=== PATIENT | female | born 1975 | race Caucasian/White ===

== ENCOUNTER → 2017-10-09 07:18 | Outpatient (CLI) | payer OTHER, SELFPAY ==
[2017-10-09 07:57] LABS: Add Manual Diff / Slide Review NO; Basophils Percent Auto 0.3 % (0-2); Eosinophils Percent Auto 2.3 % (2-4); Hematocrit 35.4 % (36-46); Lymphocytes Percent Auto 27.2 % (25-40); Mean Corpuscular HGB Conc 33.9 % (30-36); Mean Corpuscular Hemoglobin 31.1 PG (26-34); Mean Corpuscular Volume 91.8 fL (80-100); Monocytes Percent Auto 9.3 % (3-14); Neutrophils Absolute Auto 3700 /uL (3000-5900); Neutrophils Percent Auto 60.9 % (50-75); Platelet Count 274 X10^3/uL (150-400); Red Blood Cell Count 3.86 X10^6/uL (4.0-5.2); Red Cell Distribution Width 12.7 % (11.6-14.8); White Blood Cell Count 6.1 X10^3/uL (4.5-11.0)
[2017-10-09 08:38] LABS: BUN Creatinine Ratio 24.3 (6-22); Blood Urea Nitrogen 17 mg/dL (7-17); Calcium 9.4 mg/dL (8.4-10.2); Carbon Dioxide 28 mmol/L (22-32); Chloride 102 mmol/L (98-107); Estimated Glomerular Filt Rate > 60.0 mL/min (>60); Glucose 92 mg/dL (70-100); HEMOLYSIS < 15 (0-50); Potassium 4.1 mmol/L (3.4-5.1); Sodium 139 mmol/L (137-145)
[2017-10-09 09:06] LABS: Ferritin 22.8 ng/mL (6.27-137)
== END ==
PROVIDERS: PCP Family Medicine; Visit Provider Family Medicine
DX: I10 Essential (primary) hypertension (principal); D53.9 Nutritional anemia, unspecified
CPT/HCPCS: 36415; 80048; 82728; 85025

== ENCOUNTER → 2017-12-15 07:33 | Outpatient (CLI) | payer OTHER, SELFPAY ==
--- NOTE | 2017-12-15 07:35 | DI.MG.S_ITS ---
BILATERAL DIGITAL SCREENING MAMMOGRAM 3D/2D WITH CAD: 12/15/2017 CLINICAL: Baseline exam. Routine screening. Family history of breast cancer. No prior exams were available for comparison. The tissue of both breasts is extremely dense, which lowers the sensitivity of mammography. Current study was also evaluated with a Computer Aided Detection (CAD) system. No significant masses, calcifications, or other findings are seen in either breast. IMPRESSION: NEGATIVE There is no mammographic evidence of malignancy. A 1 year screening mammogram is recommended. This exam was interpreted at Station ID: [id number]. NOTE: For mammograms, a report in lay terms will be sent to the patient. Approximately 15% of breast malignancies will not be visualized mammographically. In the management of a palpable breast mass, a negative mammogram must not discourage biopsy of a clinically suspicious lesion. Electronically Signed By: Vera griffith/hedy:12/15/2017 09:04:04 letter sent: Normal Exam ACR BI-RADS Category 1: Negative [id number]
== END ==
PROVIDERS: PCP Family Medicine; Visit Provider Family Medicine
DX: Z12.31 Encounter for screening mammogram for malignant neoplasm of breast (principal); Z80.3 Family history of malignant neoplasm of breast
CPT/HCPCS: 77063; 77067

== ENCOUNTER → 2018-02-22 07:18 | Outpatient (CLI) | payer OTHER, SELFPAY ==
--- NOTE | 2018-02-22 | DI.US.S_ITS ---
PROCEDURE: US THYROID INDICATIONS: RIGHT SIDE NECK MASS TECHNIQUE: Real-time scanning was performed of the thyroid gland, with image documentation. COMPARISON: None. FINDINGS: Right: Thyroid lobe measures 4.7 x 2.4 x 3.5 cm. Left: Thyroid lobe measures 5.3 x 1.2 x 1.4 cm, and is homogenous in echotexture. Isthmus: 3 mm thick. Nodule number: 1 Location: Right thyroid Size: 4.7 x 2.4 x 3.1 cm. It is noted that this nodule is hypervascular. Composition: Solid Echogenicity: Isoechoic Shape: wider than tall. Margins: Smooth Echogenic foci: None Total points: 3 ACR TI-RADS category: 3, mildly suspicious. An ultrasound guided thyroid biopsy is recommended, by published criteria. IMPRESSION: There is a nodule seen encompassing the entire right thyroid lobe, without abnormal right thyroid tissue seen. An ultrasound guided fine needle aspiration of this nodule is recommended by published criteria. ACR TI-RADS definitions and recommendations: TI-RADS 1 (benign): 0 points. FNA not needed. TI-RADS 2 (not suspicious): 2 points. FNA not needed. TI-RADS 3 (mildly suspicious): 3 points. * FNA if 2.5 cm or larger, follow up if 1.5 cm or larger (at 1, 3, and 5 years). TI-RADS 4 (moderately suspicious): 4-6 points. * FNA if 1.5 cm or larger, follow up if 1 cm or larger (at 1, 2, 3, and 5 years). TI-RADS 5 (highly suspicious): 7 points or more. * FNA if 1 cm or larger, follow up if 0.5 cm or larger (every year for 5 years). Dictated by: Ramirez Sorto M.D. on 02/22/2018 at 7:34 Approved by: Ramirez Sorto M.D. on 02/22/2018 at 7:37
== END ==
PROVIDERS: PCP Family Medicine; Visit Provider Family Medicine
DX: R22.1 Localized swelling, mass and lump, neck (principal)
CPT/HCPCS: 76536

== ENCOUNTER → 2018-03-08 10:11 | Outpatient (CLI) | payer OTHER, SELFPAY ==
--- NOTE | 2018-03-08 | DI.US.S_ITS ---
PROCEDURE: US FINE NEEDLE ASPIRATION INDICATIONS: THYROID NODULE TECHNIQUE: The indications, alternatives, benefits, risks, and complications of the procedure were explained to the patient. Written informed consent was obtained and placed in the chart. The thyroid region was examined sonographically and a site was chosen for ultrasound guided percutaneous sampling. The skin was prepared and draped in the usual fashion, and anesthetized with 1% lidocaine infiltrated from the skin down to the thyroid gland. Multiple passes were then performed, with contents emptied into an appropriate pathology specimen container. A bandage was applied to the area of access at completion of the study. COMPARISON: None. FINDINGS: Location(s) of lesion(s) sampled: The right thyroid lobe [place]: 25 gauge hypodermic needles. Number of passes: 6 Medications: 1% lidocaine for local anaesthesia. Complications: None. IMPRESSION: Successful ultrasound-guided thyroid nodule fine needle aspiration, with cytology results pending. Please see chart below for management recommendations based on cytology results. [facility] ReportingRecommendationsNon-diagnostic* Repeat US-guided FNA, with on-site cytology evaluation if possible. * Repeated non-diagnostic nodules without high suspicion US features: close observation vs surgical consult. * Consider surgery if nodule has high suspicion US features, grows >20% in 2 dimensions on followup, or patient has clinical risk factors for malignancy. Benign* If nodule has high suspicion US features: repeat US and FNA within 12 months. * If nodule has low to intermediate suspicion US features: repeat US at 12-24 months. If nodule grows (20% increase in at least 2 dimensions, with minimal increase of 2 mm or >50% change in volume), or development of new suspicious US features, then repeat FNA or continue followup. * If nodule has very low suspicion US features: followup US at >24 months. Atypia of undetermined significance, follicular lesion of undetermined significanceRepeat FNA, molecular testing, followup US, or surgical consult.Follicular neoplasm, suspicious for follicular neoplasmSurgical consult; also consider molecular testing. Suspicious for malignancySurgical consult.MalignantSurgical consult. Dictated by: Anthony Platt M.D. on 03/08/2018 at 12:19 Approved by: Anthony Platt M.D. on 03/08/2018 at 12:19
--- NOTE | 2018-03-08 | PATH_ITS ---
Note [facility] Accession Number: [id number] TESTS RESULT FLAG UNITS REF RANGE LAB Clinician Provided Cytology Information No. of containers..01 ThinPrep Vial No. of containers..00 Previously Prepared Cytology Slide R THYROID NODULE DIAGNOSIS: R THYROID NODULE INCONCLUSIVE. ATYPIA OF UNDETERMINED SIGNIFICANCE. COMMENT: Follicular cells, predominantly benign-appearing, with focal cytologic atypia. Note: A repeat aspirate after an appropriate interval of observation might be helpful, if clinicallly indicated. Pathologist ICD10: 02 R89.6, E04.1 01 42 Years old female comes in today for: Lymph node check, reflux F/U 02 Vivian Parra MD, Pathologist NPI- [id number] Tommy Hobbs, [employer] ([facility]) 01 30 CC, PINK, CLEAR Also received 5 alcohol fixed, 5 quick stained slides, and 1 RNA vial. /HK FLAG LEGEND: L-Low Normal,H-High Normal,LL-Alert Low,HH-Alert High <-Panic Low,>-Panic High,A-Abnormal,AA-Critical Abnormal Performed at: 01 =Z [facility] [address], [place] [address] Marco Antonio Tirado MD, 02 [facility] [address] [place] [address] Stephanie Mcmillan MD, Performed at: 01 [facility] [address], [place], [place] [id number] MD Marco Antonio Tirado MD Phone: [phone]
== END ==
PROVIDERS: PCP Family Medicine; Visit Provider Family Medicine
DX: E04.1 Nontoxic single thyroid nodule (principal)
CPT/HCPCS: 10005

== ENCOUNTER → 2018-05-15 12:11 | Outpatient (REF) | payer OTHER, SELFPAY ==
[2018-05-15 12:41] LABS: Influenza A and B by PCR Rapid Negative (Negative)
== END ==
LOC: LAB 12:11
PROVIDERS: PCP Family Medicine; Visit Provider Family Medicine
DX: R05 Cough (principal); R50.9 Fever, unspecified
CPT/HCPCS: 87400

== ENCOUNTER 2018-05-28 12:52 | Emergency (ER) | payer BC, SELFPAY ==
[2018-05-28 13:00] VITALS: BP 155/93; PULSE 77; RESP 18; TEMP 36.6; O2SAT 100; BMI 26.6
[2018-05-28 14:28] LABS: Influenza A and B by PCR Rapid Negative (Negative)
--- NOTE | 2018-05-28 14:44 | ED.SOB ---
HPI - SOB/Dyspnea <EVELYN Holm - Last Filed: 05/28/18 22:14> General Chief Complaint: Shortness of Breath/Dyspnea Stated Complaint: cough, sick for 2 weeks,think I am dying Time Seen by Provider: 05/28/18 13:58 Source: patient Mode of arrival: ambulatory Limitations: no limitations History of Present Illness A 42-year-old female with history of factor 5 Leiden is a nonsmoker here for complaint of having cough on and off over the past 2 weeks. She has been seen for this by her primary care provider and in the walk-in clinic. She was seen in the walk-in clinic yesterday and was treated for cough and was prescribed Augmentin. She states she is not feeling better at this time frame. She has had negative flu swabs. She reports that she has nasal congestion along with the cough. She denies any recent fevers. She denies having a productive cough. She has tolerated p.o. intake. She denies any facial pain or sinus pain. she states that she has been around coworkers that have had cold and sickness like symptoms. she also complains of having some pain into her mouth and tongue after taking the antibiotics and having some whitish growth in his concern for thrush. no other concerns or complaints at this time frame. MD Complaint: cough Related Data Home Medications Medication Instructions Recorded Confirmed folic acid 5 mg PO DAILY #0 06/13/11 05/28/18 multivitamin 1 tab PO DAILY #0 10/06/11 05/28/18 aspirin 81 mg PO DAILY #0 04/20/12 05/28/18 labetalol 100 mg PO QAM #0 04/20/12 05/28/18 labetalol 50 mg PO QPM 05/28/18 05/28/18 Previous Rx's Medication Instructions Recorded amoxicillin 875 mg-potassium 1 tab PO BID 10 Days #20 tab 05/27/18 clavulanate 125 mg tablet benzonatate [Tessalon Perles] 200 mg PO BID-TID PRN #20 cap 05/28/18 doxycycline hyclate 100 mg PO BID #14 tab 05/28/18 fluconazole [Diflucan] 200 mg PO DAILY #7 tab 05/28/18 Allergies Allergy/AdvReac Type Severity Reaction Status Date / Time cefaclor [CEFACLOR] Allergy Severe swelling Verified 05/27/18 16:36 Sulfa (Sulfonamide Allergy Severe swelling, Verified 05/27/18 16:36 Antibiotics) itching [SULFA (SULFONAMIDE ANTIBIOTICS)] Iodine and Iodide Containing Allergy Mild rash Verified 05/27/18 16:36 Produc [IODINE AND IODIDE CONTAINING PRODUC] Review of Systems <EVELYN Holm - Last Filed: 05/28/18 22:14> Constitutional Denies chills, Denies fever(s), Denies lethargy and Denies weakness Eyes Denies change in vision, Denies eye discharge, Denies irritation and Denies loss of vision ENT Ears, Nose, Mouth, and Throat: Reports nasal congestion and Reports other Cardiovascular Denies chest pain, Denies irregular heart rhythm, Denies lightheadedness, Denies palpitations and Denies orthopnea Respiratory Reports cough Gastrointestinal Gastrointestinal: Denies abdominal pain, Denies change in bowel habits, Denies diarrhea, Denies nausea and Denies vomiting Genitourinary Denies hematuria, Denies flank pain, Denies urinary incontinence and Denies urinary urgency Integumentary/Breasts Denies pruritus, Denies erythema, Denies rash and Denies wounds Neurologic Denies loss of vision and Denies weakness Endocrine Denies palpitations Hematologic/Lymphatic Denies easy bruising PFSH <EVELYN Holm - Last Filed: 05/28/18 22:14> Medical History Factor V Leiden (Chronic 2002) Hayfever (Chronic) Infertility (Chronic 2002) Irregular periods/menstrual cycles (Chronic 1995) 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) Chicken pox (Resolved) Surgical History Anesthesia (Resolved) History of mandibular surgery (Resolved 11/2010) Status post dilation and curettage (Resolved 09/2002) Status post dilation and curettage (Resolved 04/2003) Status post dilation and curettage (Resolved 05/2009) Status post hernia repair (Resolved 12/1979) Status post tubal ligation (Resolved 07/2014) Family History Father Age: 67 Hypertension Grandfather Cancer Heart disease Hypertension High cholesterol Stroke Lung cancer Grandmother Cancer Heart disease Breast cancer Mother Age: 65 Hypertension High cholesterol Grandmother Cancer Diabetes mellitus Breast cancer Heart problem Brother No problems noted. Grandfather Muscle disease Social History marital status: Smoking Status: Never smoker alcohol intake: current (rare) Social History marital status: Smoking Status: Never smoker alcohol intake: current (rare) Exam <EVELYN Holm - Last Filed: 05/28/18 22:14> Initial Vital Signs Initial Vital Signs: Vital Signs Temperature 97.9 F 05/28/18 13:00 Pulse Rate 77 05/28/18 13:00 Respiratory Rate 18 05/28/18 13:00 Blood Pressure 155/93 H 05/28/18 13:00 Pulse Oximetry 100 05/28/18 13:00 Const General: cooperative and well developed Nutritional Appearance: well nourished Orientation: alert, awake, oriented x3 and not confused HENMT Mouth: oral mucosae normal and moist mucous membranes Throat: posterior oropharynx normal Eyes Eyelids: eyelids normal Conjunctivae: conjunctivae normal Sclera: sclerae normal Pupils: PERRL EOM: EOM intact bilaterally Resp Effort & Inspection: normal respiratory effort, able to speak in complete sentences, no respiratory distress and no use of accessory muscles Auscultation: clear to auscultation bilaterally, no rales, no rhonchi and no wheezes Cardio Rate: regular rate Rhythm: regular rhythm Heart Sounds: no click, no gallops, no murmurs and no rubs Pulses: normal peripheral pulses Skin General: no rashes or lesions noted, No jaundice and No petechiae Neuro General: alert, oriented x3, gait normal and no focal motor deficits Speech: speech normal <Anna Gonzalez DO - Last Filed: 05/29/18 18:29> Initial Vital Signs Initial Vital Signs: Vital Signs Temperature 97.9 F 05/28/18 13:00 Pulse Rate 77 05/28/18 13:00 Respiratory Rate 18 05/28/18 13:00 Blood Pressure 155/93 H 05/28/18 13:00 Pulse Oximetry 100 05/28/18 13:00 Course <EVELYN Holm - Last Filed: 05/28/18 22:14> Orders Ordered: ED Orders 05/28/18 14:05 FLU A and B [Influenza A and B by PCR Rapid] Stat 05/28/18 14:52 XR chest 2V Stat Vital Signs - 8 hr 05/28/18 16:13 Pulse Rate 78 Respiratory Rate 18 Blood Pressure [Left Arm] 128/78 Pulse Oximetry 98 <Anna Gonzalez DO - Last Filed: 05/29/18 18:29> Orders Ordered: ED Orders 05/28/18 14:05 FLU A and B [Influenza A and B by PCR Rapid] Stat 05/28/18 14:52 XR chest 2V Stat Vital Signs - 8 hr 05/28/18 16:13 Pulse Rate 78 Respiratory Rate 18 Blood Pressure [Left Arm] 128/78 Pulse Oximetry 98 MDM - SOB/Dyspnea <EVELYN Holm - Last Filed: 05/28/18 22:14> Lab Data Lab Results 05/28/18 Range/Units 14:05 Influenza A & B (PCR) Negative (Negative) Imaging Data Chest x-ray: Radiologist's impression: [address] [address] XRay Report Signed Patient: Vanna Santiago EMR#: [id number] : 1975Acct:[id number] Age/Sex: 42 / FDate of Service: 05/28/18 Loc: ED Accession Number: [id number] Procedure: XR chest 2V Ordering Provider: Kenan Lubin PROCEDURE: XR CHEST 2V INDICATIONS: Cough on and off for last 2 weeks TECHNIQUE: 2 views of the chest were acquired. COMPARISON: None. FINDINGS: Surgical changes and devices: None. Lungs and pleura: Lungs are clear. No pleural effusions or pneumothorax. Mediastinum: Mediastinal contours are normal. Heart size is normal. Bones and chest wall: No suspicious bony abnormalities. Soft tissues appear unremarkable. IMPRESSION: No acute cardiopulmonary disease process. Dictated by: Charlotte Becerril MD, PhD on 05/28/2018 at 15:05 Approved by: Charlotte Becerril MD, PhD on 05/28/2018 at 15:05 [facility] Narrative Medical decision making narrative: Chest x-ray was obtained and was negative for any acute findings. Flu swab was obtained was also negative. signs and symptoms presents as a viral upper respiratory infection. Differential between bronchitis and atypical pneumonia. Will cover for atypical pneumonia with doxycycline. She is instructed to stop taking Augmentin as prescribed. He is prescribed Tessalon Perles to help with the cough. Plenty of fluids and rest. Saline irrigation nasal passages not showers to help with congestion. She is prescribed Diflucan to cover for thrush and also prevent against vaginal candidiasis secondary to antibiotic use. Follow up with primary care provider. Return emergency room for any worsening symptoms. <Anna Gonzalez, - Last Filed: 05/29/18 18:29> Lab Data Lab Results 05/28/18 Range/Units 14:05 Influenza A & B (PCR) Negative (Negative) Discharge Plan Departure Patient Disposition: Home Clinical Impression: Bronchitis, Candidiasis of mouth Discharge Date/Time: 05/28/18 16:16 Interventions: ED Discharge Assessment Last Done: 05/28/18 16:16 Instructions: DI for Acute Bronchitis Activity Restrictions/Additional Instructions: Chest x-ray was obtained today and was negative for any acute findings. Flu swab was also obtained and was negative. signs symptoms presents as a viral bronchitis. Will cover empirically for walking pneumonia with doxycycline which is an antibiotic take as directed. Stop taking the Augmentin antibiotic. You also prescribed fluconazole to treat for thrush and also prevent against vaginal candidiasis use as directed. Plenty of fluids and rest. Use [id number] Tylenol or Motrin as needed for any discomfort. Saline irrigation to nasal passages and hot showers to help with congestion. Tessalon Perles as prescribed to help with cough also use as directed. Follow up with primary care provider. Return emergency room for any worsening symptoms. Prescriptions: New fluconazole [Diflucan] 200 mg tablet 200 mg PO DAILY Qty: 7 RF: 0 benzonatate [Tessalon Perles] 100 mg capsule 200 mg PO BID-TID PRN (Reason: cough) Qty: 20 RF: 0 doxycycline hyclate 100 mg tablet 100 mg PO BID Qty: 14 RF: 0 No Action amoxicillin-pot clavulanate [Augmentin] 875-125 mg tablet 1 tab PO BID 10 Days Qty: 20 RF: 0 folic acid 1 mg Tablet 5 mg PO DAILY Qty: 0 RF: 0 multivitamin Tablet 1 tab PO DAILY Qty: 0 RF: 0 aspirin 81 mg Tablet,Delayed Release (Dr/Ec) 81 mg PO DAILY Qty: 0 RF: 0 labetalol 100 mg Tablet 100 mg PO QAM Qty: 0 RF: 0 labetalol 100 mg Tablet 50 mg PO QPM RF: 0 Referrals: Zachery Vyas MD [Primary Care Provider] - <Anna Gonzalez DO - Last Filed: 05/29/18 18:29> Cosign ED Attending Cosignature Attestation: I was immediately available in the department for consultation. This documentation has been reviewed and I agree with assessment and plan. Supervised by Anna Gonzalez DO
--- NOTE | 2018-05-28 14:52 | DI.RAD.S_ITS ---
PROCEDURE: XR CHEST 2V INDICATIONS: Cough on and off for last 2 weeks TECHNIQUE: 2 views of the chest were acquired. COMPARISON: None. FINDINGS: Surgical changes and devices: None. Lungs and pleura: Lungs are clear. No pleural effusions or pneumothorax. Mediastinum: Mediastinal contours are normal. Heart size is normal. Bones and chest wall: No suspicious bony abnormalities. Soft tissues appear unremarkable. IMPRESSION: No acute cardiopulmonary disease process. Dictated by: Charlotte Becerril MD, PhD on 05/28/2018 at 15:05 Approved by: Charlotte Becerril MD, PhD on 05/28/2018 at 15:05
[2018-05-28 16:13] VITALS: BP 128/78; PULSE 78; RESP 18; O2SAT 98
== END 2018-05-28 16:16 | disposition home or self-care (01) ==
PROVIDERS: Emergency Medicine; Emergency Provider Nurse Practitioner Family; PCP Family Medicine
DX: J40 Bronchitis, not specified as acute or chronic (principal); B37.0 Candidal stomatitis
CPT/HCPCS: 71046; 87400; 99282; 99283

== ENCOUNTER 2018-11-05 06:37 | Emergency (ER) | payer BC, SELFPAY ==
[2018-11-05 06:42] VITALS: BP 147/81; PULSE 91; RESP 14; TEMP 37; O2SAT 98; BMI 25.9
[2018-11-05 07:11] LABS: Influenza A and B by PCR Rapid Negative (Negative)
[2018-11-05] MEDS: ONDANSETRON 4 MG ODT SL (07:36)
--- NOTE | 2018-11-05 07:39 | ED.NAVMDI ---
HPI - Nausea/Vomiting/Diarrhea General Chief complaint: Nausea/Vomiting/Diarrhea Stated complaint: thinks she has a virus/throwing up/headache yester Time Seen by Provider: 11/05/18 07:10 Source: patient Mode of arrival: ambulatory Limitations: no limitations History of Present Illness HPI Narrative: Patient is a 42-year-old female who presents with overall not feeling well. She says she has not had much to eat or drink in a few days feeling a little nauseous she threw up 1 time. She has no real stomach pain she overall just does not feel well. She has been warm but she has not had chills or fever. She has a stuffy nose but no cough she denies any shortness of breath. She sometimes has a headache but denies any significant neck pain. She overall just does not feel well. MD complaint: nausea Description of Vomiting: bilious Description of Diarrhea: none Related Data Home Medications Medication Instructions Recorded Confirmed folic acid 5 mg PO DAILY #0 06/13/11 05/28/18 multivitamin 1 tab PO DAILY #0 10/06/11 05/28/18 aspirin 81 mg PO DAILY #0 04/20/12 05/28/18 labetalol 100 mg PO QAM #0 04/20/12 05/28/18 labetalol 50 mg PO QPM 05/28/18 05/28/18 Previous Rx's Medication Instructions Recorded benzonatate [Tessalon Perles] 200 mg PO BID-TID PRN #20 cap 05/28/18 doxycycline hyclate 100 mg PO BID #14 tab 05/28/18 fluconazole [Diflucan] 200 mg PO DAILY #7 tab 05/28/18 ondansetron 4 mg PO Q8H PRN #10 tab 11/05/18 Allergies Allergy/AdvReac Type Severity Reaction Status Date / Time cefaclor [CEFACLOR] Allergy Severe swelling Verified 05/27/18 16:36 Sulfa (Sulfonamide Allergy Severe swelling, Verified 05/27/18 16:36 Antibiotics) itching [SULFA (SULFONAMIDE ANTIBIOTICS)] Iodine and Iodide Containing Allergy Mild rash Verified 05/27/18 16:36 Produc [IODINE AND IODIDE CONTAINING PRODUC] Review of Systems Review of Systems ROS Unobtainable: All systems reviewed & are unremarkable except as noted in HPI and below Constitutional Constitutional: Denies body ache(s), Denies fever(s), Reports poor appetite and Reports weakness Eyes Eyes: Denies change in vision, Denies eye discharge, Denies irritation and Denies loss of vision ENT Ears, Nose, Mouth, and Throat: Denies change in voice, Denies neck pain and Denies sore throat Cardiovascular Cardiovascular: Denies chest pain, Denies lightheadedness and Denies dyspnea Respiratory Respiratory: Denies cough, Denies dyspnea and Denies wheezing Gastrointestinal Gastrointestinal: Denies abdominal pain, Denies change in bowel habits, Denies diarrhea, Reports nausea and Denies vomiting Musculoskeletal Musculoskeletal: Denies neck pain Integumentary/Breasts Skin/Breast: Denies pruritus, Denies erythema, Denies rash and Denies wounds Neurologic Neurologic: Denies loss of vision and Reports weakness Allergic/Immunologic Allergic/Immunologic: Denies wheezing [facility] Medical History Chicken pox (Resolved) Factor V Leiden (Chronic 2002) Hayfever (Chronic) Infertility (Chronic 2002) Irregular periods/menstrual cycles (Chronic 1995) 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) Surgical History Anesthesia (Resolved) History of mandibular surgery (Resolved 11/2010) Status post dilation and curettage (Resolved 09/2002) Status post dilation and curettage (Resolved 04/2003) Status post dilation and curettage (Resolved 05/2009) Status post hernia repair (Resolved 12/1979) Status post tubal ligation (Resolved 07/2014) Family History Father Age: 68 Hypertension Grandfather Cancer Heart disease Hypertension High cholesterol Stroke Lung cancer Grandmother Cancer Heart disease Breast cancer Mother Age: 66 Hypertension High cholesterol Grandmother Cancer Diabetes mellitus Breast cancer Heart problem Brother No problems noted. Grandfather Muscle disease Social History marital status: Smoking Status: Never smoker alcohol intake: current (rare) Family History Father Age: 68 Hypertension Grandfather Cancer Heart disease Hypertension High cholesterol Stroke Lung cancer Grandmother Cancer Heart disease Breast cancer Mother Age: 66 Hypertension High cholesterol Grandmother Cancer Diabetes mellitus Breast cancer Heart problem Brother No problems noted. Grandfather Muscle disease Social History marital status: Smoking Status: Never smoker alcohol intake: current (rare) Exam Initial Vital Signs Initial Vital Signs: Vital Signs Temperature 98.6 F 11/05/18 06:42 Pulse Rate 91 H 11/05/18 06:42 Respiratory Rate 14 11/05/18 06:42 Blood Pressure 147/81 H 11/05/18 06:42 Pulse Oximetry 98 11/05/18 06:42 GENERAL: Well-appearing, well-nourished and in no acute distress. HEENT: Head atraumatic,EOMI, pupils reactive, no meningeal signs CARDIOVASCULAR: Regular rate and rhythm without murmurs, rubs or gallops. RESPIRATORY: Breath sounds equal bilaterally, no wheezes rales or rhonchi. ABDOMEN: Soft, mild epigastric pain no right upper quadrant pain negative Contreras sign EXTREMITIES: Normal range of motion, no clubbing or edema. Neurovascularly intact NEUROLOGICAL: Alert and oriented x4.Normal gait and speech. SKIN: Warm, dry, no laceration, no petechiae, no rashes or lesions. Course Orders Ordered: ED Orders 11/05/18 06:45 Influenza A and B by PCR Rapid Stat Discontinued Medications Ondansetron HCl (Zofran Odt) 4 mg SL NOW ONE Stop: 11/05/18 07:24 Last Admin: 11/05/18 07:36 Dose: 4 mg Documented by: RODNEY Vital Signs Vital signs: Vital Signs - 8 hr 11/05/18 06:42 Temperature 98.6 F Pulse Rate 91 H Respiratory Rate 14 Blood Pressure 147/81 H Pulse Oximetry 98 MDM - Nausea/Vomiting/Diarrhea Lab Data Attestation: I reviewed the patient's lab results. Labs: Lab Results 11/05/18 Range/Units 06:45 Influenza A & B (PCR) Negative (Negative) MDM Narrative Medical decision making narrative: Patient overall does not appear septic. She has minimal epigastric pain without right upper quadrant pain. She apparently had a migraine headache yesterday which has now resolved. She does not appear to have meningitis she has no meningeal signs. Overall appears nontoxic. Tolerating oral fluids. At this time I see no indication for any further workup. I discussed all findings with the patient, Education has been performed regarding treatment plan, diagnosis, warning signs and symptoms and all concerns have been addressed. Verbally agree with and understood all of the above. Discharge Plan Departure Patient Disposition: Home Clinical Impression: Gastroenteritis Discharge Date/Time: 11/05/18 08:30 Instructions: DI for Viral Gastroenteritis -- Adult Activity Restrictions/Additional Instructions: 1) You have been diagnosed with gastroenteritis 2) What to do: Drink frequent but small amounts of fluids. I recommend Gatorade or a Gatorade-like product, as it has small amounts of sugar and salts that improve fluid retention. 3) Take medications as directed Zofran 4 mg every 8 hours if needed for nausea or vomiting 4) Follow up with your primary care provider in 2-3 days 5) Return to ER if you should have any new or worsening symptoms such as, unable to hold down fluids despite use of anti-nausea medications and the small volume oral rehydration strategy. Prescriptions: New ondansetron 4 mg tablet,disintegrating 4 mg PO Q8H PRN (Reason: nausea and vomiting) Qty: 10 RF: 0 No Action folic acid 1 mg Tablet 5 mg PO DAILY Qty: 0 RF: 0 multivitamin Tablet 1 tab PO DAILY Qty: 0 RF: 0 aspirin 81 mg Tablet,Delayed Release (Dr/Ec) 81 mg PO DAILY Qty: 0 RF: 0 labetalol 100 mg Tablet 100 mg PO QAM Qty: 0 RF: 0 labetalol 100 mg Tablet 50 mg PO QPM RF: 0 fluconazole [Diflucan] 200 mg tablet 200 mg PO DAILY Qty: 7 RF: 0 benzonatate [Tessalon Perles] 100 mg capsule 200 mg PO BID-TID PRN (Reason: cough) Qty: 20 RF: 0 doxycycline hyclate 100 mg tablet 100 mg PO BID Qty: 14 RF: 0 Referrals: Zachery Vyas MD [Primary Care Provider] -
--- NOTE | 2018-11-05 08:22 | PC.NURSE ---
no emesis noted. states stomach still queasy, doctor to see. plan dc
== END 2018-11-05 08:30 | disposition home or self-care (01) ==
PROVIDERS: Emergency Provider Emergency Medicine; PCP Family Medicine
DX: K52.9 Noninfective gastroenteritis and colitis, unspecified (principal)
CPT/HCPCS: 87400; 87502; 99282; 99283

== ENCOUNTER → 2018-11-13 14:51 | Outpatient (CLI) | payer BC, SELFPAY ==
[2018-11-15 15:17] LABS: Homocysteine 9.5 umol/L (< 10.4)
== END ==
PROVIDERS: PCP Family Medicine
DX: D68.9 Coagulation defect, unspecified (principal)
CPT/HCPCS: 36415; 83090

== ENCOUNTER → 2018-12-10 12:59 | Outpatient (CLI) | payer BC, SELFPAY ==
--- NOTE | 2018-12-10 | DI.US.S_ITS ---
PROCEDURE: US THYROID INDICATIONS: thyroid nodule TECHNIQUE: Real-time scanning was performed of the thyroid gland, with image documentation. COMPARISON: [facility], US, US FINE NEEDLE ASPIRATION, 03/08/2018, 10:31. [facility], US, US THYROID, 02/22/2018, 7:27. FINDINGS: Right: Thyroid lobe measures 5.2 x 2.5 x 3.5 cm, and is homogeneous in echotexture. Left: Thyroid lobe measures 5.4 x 1.2 x 1 point cm, and is homogenous in echotexture. Isthmus: 2.5 mm thick. Nodule number: 1 Location: Right lobe Size: Increased at 5.2 x 2.5 x 3.5 cm. Composition: Predominantly solid Echogenicity: Hyperechoic Shape: Wider than tall Margins: Smooth Echogenic foci: None Total points: 3 ACR TI-RADS category: Mildly suspicious IMPRESSION: Increase in size of right thyroid nodule. Recommend repeat fine needle aspiration. ACR TI-RADS definitions and recommendations: TI-RADS 1 (benign): 0 points. FNA not needed. TI-RADS 2 (not suspicious): 2 points. FNA not needed. TI-RADS 3 (mildly suspicious): 3 points. * FNA if 2.5 cm or larger, follow up if 1.5 cm or larger (at 1, 3, and 5 years). TI-RADS 4 (moderately suspicious): 4-6 points. * FNA if 1.5 cm or larger, follow up if 1 cm or larger (at 1, 2, 3, and 5 years). TI-RADS 5 (highly suspicious): 7 points or more. * FNA if 1 cm or larger, follow up if 0.5 cm or larger (every year for 5 years). Dictated by: Honorio WOODS Interpreted: Kaylyn Araujo MD on 12/11/2018 at 15:35 Approved by: Kaylyn Araujo M.D. on 12/11/2018 at 18:20
== END ==
PROVIDERS: PCP Family Medicine; Visit Provider Internal Medicine Endocrinology, Diabetes & Metabolism
DX: E04.1 Nontoxic single thyroid nodule (principal)
CPT/HCPCS: 76536

== ENCOUNTER → 2018-12-17 11:27 | Outpatient (CLI) | payer BC, SELFPAY ==
--- NOTE | 2018-12-17 | DI.MG.S_ITS ---
BILATERAL DIGITAL SCREENING MAMMOGRAM 3D/2D WITH CAD: 12/17/2018 CLINICAL: Routine screening. Family history of breast cancer. Comparison is made to [facility]. The tissue of both breasts is extremely dense, which lowers the sensitivity of mammography. Current study was also evaluated with a Computer Aided Detection (CAD) system. There are benign diffuse calcifications in both breasts. No significant masses, calcifications, or other findings are seen in either breast. There has been no significant interval change. IMPRESSION: There is no mammographic evidence of malignancy. A 1 year screening mammogram is recommended. This exam was interpreted at Station ID: [id number]. NOTE: For mammograms, a report in lay terms will be sent to the patient. Approximately 15% of breast malignancies will not be visualized mammographically. In the management of a palpable breast mass, a negative mammogram must not discourage biopsy of a clinically suspicious lesion. Electronically Signed By: Geovani mooney/hedy:12/18/2018 09:45:18 copy to: Morgan Carcamo letter sent: Normal Exam ACR BI-RADS Category 2: Benign Finding(s) 3342F
== END ==
PROVIDERS: PCP Family Medicine; Visit Provider Family Medicine
DX: Z12.31 Encounter for screening mammogram for malignant neoplasm of breast (principal); Z80.3 Family history of malignant neoplasm of breast
CPT/HCPCS: 77063; 77067

== ENCOUNTER → 2019-03-18 12:11 | Outpatient (CLI) | payer BC, SELFPAY ==
[2019-03-18 14:15] LABS: Free T4, Direct Thyroxine 0.85 ng/dL (0.78-2.19)
[2019-03-18 14:29] LABS: Thyroid Stimulating Hormone 2.76 uIU/mL (0.47-4.68)
[2019-03-20 15:24] LABS: Triiodothyronine T3 Total 87 ng/dL (76-181)
== END ==
PROVIDERS: PCP Family Medicine; Visit Provider Otolaryngology Otolaryngology/Facial Plastic Surgery
DX: E04.1 Nontoxic single thyroid nodule (principal)
CPT/HCPCS: 36415; 84439; 84443; 84480

== ENCOUNTER → 2019-12-20 07:54 | Outpatient (CLI) | payer BC, SELFPAY ==
--- NOTE | 2019-12-20 | DI.MG.S_ITS ---
BILATERAL DIGITAL SCREENING MAMMOGRAM 3D/2D WITH CAD: 12/20/2019 CLINICAL: Routine screening. Family history of breast cancer. Comparison is made to exams dated: 12/17/2018 mammogram and 12/15/2017 mammogram - [facility]. The tissue of both breasts is extremely dense, which lowers the sensitivity of mammography. Current study was also evaluated with a Computer Aided Detection (CAD) system. There are benign diffuse calcifications in both breasts. No significant masses, calcifications, or other findings are seen in either breast. There has been no significant interval change. IMPRESSION: BENIGN There is no mammographic evidence of malignancy. A 1 year screening mammogram is recommended. This exam was interpreted at Station ID: [id number]. NOTE: For mammograms, a report in lay terms will be sent to the patient. Approximately 15% of breast malignancies will not be visualized mammographically. In the management of a palpable breast mass, a negative mammogram must not discourage biopsy of a clinically suspicious lesion. Electronically Signed By: Geovani mooney/hedy:12/20/2019 09:36:54 copy to: Morgan Carcamo letter sent: Normal Exam ACR BI-RADS Category 2: Benign Finding(s) 3342F
== END ==
PROVIDERS: Referring Provider Obstetrics & Gynecology; Visit Provider Obstetrics & Gynecology
DX: Z12.31 Encounter for screening mammogram for malignant neoplasm of breast (principal); Z80.3 Family history of malignant neoplasm of breast
CPT/HCPCS: 77063; 77067

== ENCOUNTER → 2020-06-15 09:56 | Outpatient (CLI) | payer OTHER, SELFPAY ==
[2020-06-15 11:15] LABS: COVID19 -Nasal RAPID Negative (Negative)
== END ==
PROVIDERS: Visit Provider Obstetrics & Gynecology
DX: Z01.812 Encounter for preprocedural laboratory examination (principal); Z20.822 Contact with and (suspected) exposure to COVID-19
CPT/HCPCS: 87635

== ENCOUNTER 2020-06-16 08:27 | Day surgery (SDC) | payer OTHER, SELFPAY ==
[2020-06-10 13:20] VITALS: BMI 26.9
[2020-06-16] VITALS (18 sets, daily range): BP systolic 96–150; BP diastolic 58–85; PULSE 61–79; RESP 8–18; TEMP 36.3–37.2; O2SAT 96–100; BMI 26.9
--- NOTE | 2020-06-16 | PATH_ITS ---
[facility] Accession Number: [id number] . 01 Material submitted: . uterus - UTERUS AND REMANTS OF BILATERAL FALLOPIAN TUBES . 02 Diagnosis: Uterus And Remnants Of Bilateral Fallopian Tubes, Supracervical Hysterectomy And Bilateral Salpingectomy, Not Otherwise Specified (Morcellated Specimen, Weight 39 Grams): Late secretory endometrium; negative for glandular hyperplasia, cytologic atypia, or malignancy. Myometrium with multiple intramural leiomyomas (5-10 mm in greatest dimension). Uterine serosa with benign mesothelial lined cysts and with non-specific adhesions. Segments of fallopian tube x2 with benign paratubal cysts; negative for atypia or malignancy. [facility] 06/23/2020 1528 Local . 02 Electronically signed: . Vivian Parra MD, Pathologist NPI- [id number] . 01 Gross description: . Received in formalin, labeled with the patient's name and uterus and remnants of bilateral fallopian tubes, is a 39 g, 6.0 x 6.0 x 2.5 cm aggregate of multiple morcellated fragments of supracervically amputated uterus, with purple-quiroga serosa with scattered fine adhesions were identified; pink-quiroga endometrium up to 0.3 cm thick; and pink-quiroga, trabeculated myometrium containing multiple (more than 10) pale quiroga, whorled, rubbery myometrial nodules 0.5-1.0 cm in greatest dimension, without hemorrhage or softening. A full-thickness slice measures 2.0 cm in one fragment. No cervix present. Also received in the container are two fimbriated fallopian tubes, 4.0-6.5 cm length, 0.5-0.6 cm diameter, with purple-quiroga serosa with paratubal cysts, and a lumen up to 0.3 cm. Racquet Maker sections are submitted. . SUMMARY OF SECTIONS: A1. Endomyometrium, full-thickness, one piece. A2. Endometrium and myometrium (not full-thickness), two pieces. A3. Additional myometrial nodules and areas of serosal adhesions, insurance follow up representative, four pieces. A4. [place] fallopian tube fimbria and cross-sections, four pieces. A5. Longer fallopian tube fimbria and cross-sections, four pieces. ([id number]) /[facility] 06/20/2020 [facility]9 Local . 02 Pathologist provided ICD-10: N93.9, D25.9 . 02 CPT . 028223 Performed at: 01 [facility] [address] [facility], [place], [place] [id number] MD Marco Antonio Tirado MD Phone: [phone] Performed at: 02 [facility] [address] [place], [place] [id number] MD Stephanie Mcmillan MD Phone: [phone]
[2020-06-16 09:04] LABS: Add Manual Diff / Slide Review NO; Basophils Absolute Auto 0 /uL (0-100); Basophils Percent Auto 0.3 % (0-2); Eosinophils Absolute Auto 200 /uL (0-450); Eosinophils Percent Auto 2.6 % (2-4); Hematocrit 35.7 % (36-46); Hemoglobin 12.2 g/dL (12.0-16.0); Lymphocytes Absolute Auto 1600 /uL (1100-4500); Mean Corpuscular HGB Conc 34.1 % (30-36); Mean Corpuscular Hemoglobin 31.2 PG (26-34); Mean Corpuscular Volume 91.3 fL (80-100); Monocytes Absolute Auto 700 /uL (0-900); Monocytes Percent Auto 8.8 % (3-14); Neutrophils Absolute Auto 5500 /uL (1500-7000); Neutrophils Percent Auto 68.3 % (50-75); Platelet Count 239 X10^3/uL (150-400); Red Blood Cell Count 3.91 X10^6/uL (4.0-5.2); Red Cell Distribution Width 12.8 % (11.6-14.8)
[2020-06-16 09:17] LABS: BUN Creatinine Ratio 19.4 (6-22); Blood Urea Nitrogen 13 mg/dL (7-17); Calcium 9.5 mg/dL (8.4-10.2); Carbon Dioxide 24 mmol/L (22-32); Chloride 104 mmol/L (98-107); Estimated Glomerular Filt Rate > 60.0 mL/min (>60); Glucose 95 mg/dL (70-100); HEMOLYSIS < 15 (0-50); Sodium 138 mmol/L (137-145)
[2020-06-16] MEDS: ACETAMINOPHEN 325 MG TABLET 975 MG PO (09:19)
--- NOTE | 2020-06-16 09:19 | PM.PREOP ---
Pre-operative Note COVID-19 COVID-19 status: Negative Result date/Date tested (Pos, Neg/Pending): 06/16/20 Interval Note History & Physical reviewed/Exam performed by Physician: Yes Changes to H&P: No
[2020-06-16] MEDS: LACTATED RINGERS 1,000 ML 42 ML IV ×2 (09:22→11:37)
[2020-06-16] MEDS: CLINDAMYCIN 900 MG/50 ML PIGGYBACK 50 MG IV (10:34)
--- NOTE | 2020-06-16 11:14 | SUR.OPER ---
Lithotomy on padded OR bed. [place] Pad Positioner under torso. Head on pillow, arms padded and tucked at sides. Legs secured in padded yellow fins stirrups.
[2020-06-16] MEDS: BUPIVACAINE 0.25% W/ EPI 30 ML VIAL INJ (11:21)
[2020-06-16] MEDS: ROPIVACAINE 0.2% PF 2 MG/ML 10ML AMP 10 ML INJ (11:22)
--- NOTE | 2020-06-16 11:50 | PM.OP.1 ---
Operative Date/Time/Diagnoses Date of procedure: 06/16/20 Time of procedure: 12:29 Pre-op diagnosis: abnormal uterine bleeding Post-op diagnosis: same Procedure & Clinicians Procedure: laparoscopic supracervical hysterectomy, removal of bilateral tubal remnants Same procedure as scheduled: Yes Indications: abnormal uterine bleeding Surgeon: Angeles Nagy Plant Protection Guard: Tonja Pompa Anesthesia Type: General Operative Notes Findings: Normal vulva, vagina, ovaries. Remnants of otherwise normal fallopian tubes. Uterus appears to have adenomyosis and multiple small fibroids. Closure Type: primary Specimen(s): other (uterus and remnants of bilateral fallopian tubes.) Estimated Blood Loss (mL): 20 Procedure in detail: After proper consents were obtained, the patient was taken to the operating room. General anesthesia was induced, and she was placed in the dorsal lithotomy position and prepped and draped in the normal sterile fashion. A jones catheter was placed, and a speculum placed in the patient's vagina. A single tooth tenaculum was applied to the anterior lip of the cervix, and hegar dilators used to dilate the cervix to 6mm with gentle pressure. A uterine manipulator was gently inserted and the balloon inflated to 5ccs. The tenaculum and speculum were removed from the vagina. Attention was then turned to the abdomen, where 1cc of .25% marcaine with epinephrine was used to infiltrate the skin just below the umbilicus. A scalpel was used to make a 5mm incision, the anterior abdominal wall was elevated manually, and a Veress needle gently inserted into the abdomen. Intraperitoneal placement was confirmed with a drop of normal saline passed through the veress needle with gravity, and CO2 used to insufflate the abdomen to 15mmHg. A 5mm trocar and sleeve were placed into the abdomen through this incision, using the towel clamps to elevate the abdominal wall, and intraperitoneal placement was confirmed visually with insertion of the laparoscope. Abdominal survey at this time was normal, and lateral ports were placed under direct visualization. These were placed on the left and right, 8cm from the umbilicus and after infiltration of 1mm of local anesthetic as above. The patient was placed in trendelenburg position, and a blunt probe used to gently push the bowel out of the pelvis. The ovaries and fallopian tube remnants appeared normal bilaterally. A atraumatic grasper was used to elevate the remnant of the left fallopian tube, and a PK device was used to amputate this remnant, which was removed from the abdomen. The uteroovarian ligament and round ligaments were then cauterized and transected with this device, the anterior and posterior leaflets of the broad ligament and skeletonized and the vesicouterine peritoneum identified. This was transected and a bladder flap created with the PK device and gentle traction. The uterine arteries were identified, and cauterized and cut at the level of the internal os. The same procedure was performed on the patient's right, without complication. The Kevon loop was inserted into the abdomen, and placed around the uterus at the level of the internal os. The uterine manipulator was removed. After careful inspection for proper placement anteriorly and posteriorly, this device was used to amputate the uterine fundus without complication. The PK device was used to ablate the cervical os, and hemostasis achieved where necessary with the PK device. Attention was then turned to the abdominal wall, where .25% marcaine with epinephrine was used to infiltrate a midline area 2cm above the pubic symphesis. A scalpel was used to make a 3cm minilaparotomy, and a 15mm trocar and sleeve inserted under direct visualization into the abdominal cavity. A 12mm endocatch bag was placed through this port under direct visualization, and carefully deployed into the abdomen. The uterus was placed in the bag, and the bag was closed and removed under direct visualization of all parts of the bag. The open end of the bag was removed through the port, the port was removed, and the open end of the endocatch bag brought through the incision. A small Joy device was inserted to protect the incision and skin, and the uterus was brought to the opening of the incision and carefully hand morcellated out through the incision using a scalpel. After removal of the uterus, the joy device and endocatch bag were removed. The fascia at the minilaparotomy incision was closed using 0 vicryl in a running fashion. The abdomen was re-insufflated, hemostasis at the operative sites assured, and a repeat abdominal survey was normal. The laparoscope was removed from the abdomen, the insufflating gas allowed to escape, and the ports removed. The skin at all 4 incisions was closed with 4-0 biosyn, then covered with steri strips and bandages. The jones catheter was removed from the bladder. The patient tolerated the procedure well, all counts were correct, 900 mg of clindamycin were given at the beginning of the case. The patient was transported to PACU in stable condition. IVF: 1000ccs LR UOP: 50ccs clear yellow urine EBL: 20ccs Complications: none Post-operative Condition: stable Disposition: PACU Plan for aftercare: Routine postoperative care
[2020-06-16] MEDS: OXYCODONE IR 5 MG TABLET PO ×3 (12:06→22:20)
[2020-06-16] MEDS: hydrOXYzine pamoate 25 MG CAPSULE PO (12:06)
[2020-06-16] MEDS: KETOROLAC 30 MG/ML VIAL IV ×2 (13:25→19:11)
[2020-06-16] MEDS: LACTATED RINGERS 1,000 ML 100 ML IV ×2 (13:26→22:45)
[2020-06-16] MEDS: LABETALOL 100 MG TABLET 50 MG PO (17:55)
--- NOTE | 2020-06-16 18:27 | PC.NURSE ---
bladder scan was 535cc, later on pt was able to void 550cc.
[2020-06-16] MEDS: buPROPion SR 100 MG TAB PO (20:36)
[2020-06-16] MEDS: DOCUSATE 250 MG CAPSULE PO (20:37)
[2020-06-16] MEDS: ENOXAPARIN 40 MG/0.4 ML SYRINGE SUBCUT (22:40)
--- NOTE | 2020-06-16 23:53 | PC.NURSE ---
patient is alert and oriented. Breath sounds CTA with RA sat of 100%. HRR. Denies nausea. BT hypoactive but patient reports having passed some flatus since return from surgery. Abdomen is slightly distended and tender to touch. Bandaid dressings x 4 to abdomen with shadow drainage noted on suprapubic site and right abdominal site. No drainage on stacey pad. Is able to move herself in bed and gets up to bathroom with SBA. Is wearing bilateral calf SCD's. States abdominal pain is tolerable at 4/10 and recently received pain meds at 2220; ice applied for comfort. Verbalizes understanding of use of I.S. and TCDB. Fall risk score is low but patient instructed to call for assistance when getting out of bed.
[2020-06-17] MEDS: KETOROLAC 30 MG/ML VIAL IV ×2 (00:54→06:37)
[2020-06-17 05:51] VITALS: BP 124/62; PULSE 82; RESP 16; TEMP 36.7; O2SAT 96
[2020-06-17 06:38] LABS: Add Manual Diff / Slide Review NO; Basophils Absolute Auto 0 /uL (0-100); Basophils Percent Auto 0.2 % (0-2); Eosinophils Absolute Auto 0 /uL (0-450); Hemoglobin 11.1 g/dL (12.0-16.0); Lymphocytes Absolute Auto 1400 /uL (1100-4500); Lymphocytes Percent Auto 5.8 % (25-40); Mean Corpuscular HGB Conc 33.5 % (30-36); Mean Corpuscular Hemoglobin 30.9 PG (26-34); Mean Corpuscular Volume 92.3 fL (80-100); Monocytes Absolute Auto 1600 /uL (0-900); Monocytes Percent Auto 6.6 % (3-14); Neutrophils Absolute Auto 21800 /uL (1500-7000); Neutrophils Percent Auto 87.4 % (50-75); Platelet Count 236 X10^3/uL (150-400); Red Blood Cell Count 3.58 X10^6/uL (4.0-5.2); Red Cell Distribution Width 12.7 % (11.6-14.8); White Blood Cell Count 24.9 X10^3/uL (4.5-11.0)
[2020-06-17 08:20] VITALS: BP 131/74; PULSE 71; RESP 15; TEMP 37.1; O2SAT 100
[2020-06-17] MEDS: buPROPion SR 100 MG TAB PO (08:39)
[2020-06-17 08:40] VITALS: BP 131/74
[2020-06-17] MEDS: LABETALOL 100 MG TABLET PO (08:40)
[2020-06-17] MEDS: DOCUSATE 250 MG CAPSULE PO (08:41)
[2020-06-17 10:07] LABS: Procalcitonin 0.045 ng/mL (<0.5)
--- NOTE | 2020-06-17 12:04 | PC.NURSE ---
Pt discharge education given to pt and spouse, discussed- f/u appts to be made, medications, s/s of infection, s/s of stroke, and reasons to seek medical attention. All questions answered. IV removed by student nurse Mary, supervised by her instructor. Pt dressed with spouse's assistance, all belongings packed. Pt left via w/c to spouse's POV accompanied by PC ANALYST.
--- NOTE | 2020-06-21 12:34 | P.DS_ITS ---
History of Present Illness History of Present Illness Date Patient Seen: 06/17/20 Time Patient Seen: 09:30 Chief complaint: *OPB* Narrative: Patient is a 44-year-old postop day # 1 status post laparoscopic supracervical hysterectomy with bilateral salpingectomy. Patient's pain is well controlled. She has voided without the catheter. She is tolerating a diet. No nausea or vomiting. She is ambulating without assistance. Discharge Providers Provider Discharge Date: 06/17/20 Primary care physician: Chuckie Cardoza MD Discharge provider: Tonja Pompa MD Summary Hospital Course Discharge Diagnosis: Status post laparoscopic supracervical hysterectomy with bilateral salpingectomy Hospital Course: Patient presented on June 17, 2020 for a scheduled [facility] and bilateral salpingectomy. She underwent this procedure without complication. Her postoperative course was unremarkable. She was able to void on postop day # 0. She tolerated a diet. She is passing flatus. She has voided without the catheter. She is ambulating without assistance. Her pain is well controlled. On the morning of postop day # 1 she had an elevated white count at 24. She had no fever or any signs of infection. A procalcitonin was negative. The patient was discharged home on postop day # 1. Status at Discharge Cognitive/behavioral status at discharge: oriented Functional status at discharge: independent ambulation Overall status at discharge: patient is progressing back to baseline Time Spent with Patient Time spent: Less than 30 minutes Exam Vital Signs (past 8 hours): Oxygen Delivery Method Room Air Oxygen Flow Rate 0 Narrative Exam Narrative: Generally: Patient is sitting up in chair, no acute distress Lungs: Clear to auscultation bilaterally Cardiovascular: Regular rate and rhythm Abdomen: Soft and flat. Good bowel sounds in all 4 quadrants. Incisions: Clean dry and intact with Band-Aids. Extremities: Negative Homans Objective Labs Result Diagrams: 06/17/20 06:21 06/16/20 08:57 [facility] Medical History (Updated 06/15/20 @ 12:56 by Angeles Trammell MD) Abnormal uterine bleeding Chicken pox Factor V Leiden (2002) Hayfever Infertility (2002) Irregular periods/menstrual cycles (1995) Methylenetetrahydrofolate reductase (MTHFR) gene mutation (2002) Recurrent loss Right thyroid nodule (~02/2018) Surgical History (Updated 06/16/20 @ 16:04 by Angeles Trammell MD) Anesthesia History of mandibular surgery (11/2010) Status post dilation and curettage (09/2002) Status post dilation and curettage (04/2003) Status post dilation and curettage (05/2009) Status post hernia repair (12/1979) Status post tubal ligation (07/2014) Family History Father Age: 69 Hypertension Grandfather Cancer Heart disease Hypertension High cholesterol Stroke Lung cancer Grandmother Cancer Heart disease Breast cancer Mother Age: 67 Hypertension High cholesterol Grandmother Cancer Diabetes mellitus Breast cancer Heart problem Brother No problems noted. Grandfather Muscle disease Social History marital status: household members: spouse Smoking Status: Never smoker alcohol intake: current Discharge Assessment & Plan Assessment and Plan Assessment: 44-year-old postop day # 1 status post [facility] and bilateral salpingectomy, doing very well Plan of Treatment: Follow-up in [address] Trammell Patient instructed to call with fever, chills, redness or drainage around the incisions, or bleeding vaginally more than spotting to light Discharge Plan Discharge Plan Patient Disposition: Home Provider Discharge Comment: Call with fever, chills, redness or drainage around the incisions, or bleeding vaginally more than spotting Ibuprofen 600 mg every 6 hours Tylenol 650 mg every 6 hours Discharge orders & Medications Discharge Orders: Discharge (Order); Ordered 06/17/20 Ordered By: Tonja Pompa Prescriptions: New oxycodone 5 mg tablet 5 mg PO Q6H PRN (Reason: pain) Qty: 14 RF: 0 Continued folic acid 1 mg Tablet 5 mg PO DAILY Qty: 0 RF: 0 multivitamin Tablet 1 tab PO DAILY Qty: 0 RF: 0 aspirin 81 mg Tablet,Delayed Release (Dr/Ec) 81 mg PO DAILY Qty: 0 RF: 0 labetalol 100 mg Tablet 100 mg PO QAM Qty: 0 RF: 0 bupropion HCl 100 mg tablet 100 mg PO BID RF: 0 fluticasone propionate 50 mcg/actuation spray,suspension 1 spray NASAL DAILY RF: 0 trazodone 50 mg tablet 50 mg PO DAILY RF: 0 labetalol 100 mg Tablet 50 mg PO QPM RF: 0 Follow up/Referrals: Angeles Trammell MD [Physician] - 06/29/20 3:30 pm (06/29 @ 3:[address] trammell please check in 15 min prior to your scheduled appointment postop check) Diet/Activity/Treatments Diet: Regular Activity: Nothing in the vagina for 6 weeks. Avoid lifting more than 10 lbs for 6 weeks. If you have increasing pain, fevers, chills, nausea, vomiting, chest pa in or trouble breathing, leg swelling, or any other symptoms, call our office or come to the emergency room. Other treatments: Take ibuprofen 600mg every 6 hours as needed for pain, with 650mg tylenol as often as every 6 hours. Take oxycodone for pain not controlled by these medications. Skin/Wound/Dressing Care Report to your healthcare provider any signs of infection, such as:: chills, fever, night sweats, increased pain, unusual drainage and unusual redness Dressing: Remove band aids day after surgery, and underlying steri strips in 1 week or earlier if soiled. In shower, let clean water run over incisions and pat dry, taking care not to rub. Visit Report/Discharge Packet Instructions: DI for Hysterectomy, DI for Laparoscopy Stand Alone Forms: Patient Portal/API, Surgery Discharge Discharge Data Primary Care Provider: Chuckie Cardoza Attending Provider: Angeles Trammell Quality VTE Deep Vein Thrombosis/Pulmonary Embolism Present on Admission: No
== END 2020-06-17 11:40 | disposition home or self-care (01) ==
LOC: OR 08:31 → AC 08:32
PROVIDERS: Obstetrics & Gynecology; PCP Family Medicine; Referring Provider Obstetrics & Gynecology; Visit Provider Obstetrics & Gynecology
PROC: 0UT94ZL Resection of Uterus, Supracervical, Percutaneous Endoscopic Approach (ICD-10-PCS; CPT 58542; principal; 2020-06-16 09:45)
DX: D25.1 Intramural leiomyoma of uterus (principal); D68.51 Activated protein C resistance; D64.9 Anemia, unspecified; F32.9 Major depressive disorder, single episode, unspecified; I10 Essential (primary) hypertension; N83.8 Other noninflammatory disorders of ovary, fallopian tube and broad ligament
CPT/HCPCS: 58542; 36415; 80048; 84145; 85025; 86850; 86900; 86901; J0330; J1100; J1650; J1885; J2250; J2405; J2704; J2795; J3010

== ENCOUNTER → 2020-12-21 16:07 | Outpatient (CLI) | payer OTHER, SELFPAY ==
[2020-06-16 13:36] VITALS: BMI 26.9
--- NOTE | 2020-12-21 | DI.MG.S_ITS ---
BILATERAL DIGITAL SCREENING MAMMOGRAM 3D/2D WITH CAD: 12/21/2020 CLINICAL: Routine screening. Family history of breast cancer. Comparison is made to exams dated: 12/20/2019 mammogram, 12/17/2018 mammogram, and 12/15/2017 mammogram - [facility]. The tissue of both breasts is extremely dense, which lowers the sensitivity of mammography. Current study was also evaluated with a Computer Aided Detection (CAD) system. There are benign diffuse calcifications in both breasts. No significant masses, calcifications, or other findings are seen in either breast. There has been no significant interval change. IMPRESSION: BENIGN There is no mammographic evidence of malignancy. A 1 year screening mammogram is recommended. This exam was interpreted at Station ID: [id number]. NOTE: For mammograms, a report in lay terms will be sent to the patient. Approximately 15% of breast malignancies will not be visualized mammographically. In the management of a palpable breast mass, a negative mammogram must not discourage biopsy of a clinically suspicious lesion. Electronically Signed By: Zoila christianson/hedy:12/21/2020 17:25:45 letter sent: Normal Exam ACR BI-RADS Category 2: Benign Finding(s) 3342F
== END ==
PROVIDERS: PCP Family Medicine; Referring Provider Obstetrics & Gynecology; Visit Provider Obstetrics & Gynecology
DX: Z12.31 Encounter for screening mammogram for malignant neoplasm of breast (principal); Z80.3 Family history of malignant neoplasm of breast
CPT/HCPCS: 77063; 77067

== ENCOUNTER → 2021-12-23 14:57 | Outpatient (CLI) | payer OTHER, SELFPAY ==
[2020-06-16 13:36] VITALS: BMI 26.9
--- NOTE | 2021-12-23 15:05 | DI.MG.S_ITS ---
BILATERAL DIGITAL SCREENING MAMMOGRAM 3D/2D WITH CAD: 12/23/2021 CLINICAL: Routine screening. Family history of breast cancer. Comparison is made to exams dated: 12/21/2020 mammogram, 12/20/2019 mammogram, and 12/17/2018 mammogram - [facility]. Both breasts are extremely dense, which lowers the sensitivity of mammography (category d />75% glandular tissue). Current study was also evaluated with a Computer Aided Detection (CAD) system. There are benign diffuse calcifications in both breasts. No significant masses, calcifications, or other findings are seen in either breast. There has been no significant interval change. IMPRESSION: BENIGN There is no mammographic evidence of malignancy. A 1 year screening mammogram is recommended. Based on the Tyrer Cuzick model (a risk assessment model) the patient's lifetime risk is 12.7% and her 10 year risk is 2.2%. According to the ACR, ACS, and NCCN guidelines, an annual breast MRI exam along with mammogram is recommended if the patient's lifetime risk is 20% or greater. This exam was interpreted at Station ID: [id number]. NOTE: For mammograms, a report in lay terms will be sent to the patient. Approximately 15% of breast malignancies will not be visualized mammographically. In the management of a palpable breast mass, a negative mammogram must not discourage biopsy of a clinically suspicious lesion. Electronically Signed By: Vera griffith/hedy:12/24/2021 08:33:46 letter sent: Normal Exam ACR BI-RADS Category 2: Benign Finding(s) 3342F
== END ==
PROVIDERS: PCP Physician Assistant Medical; Referring Provider Physician Assistant Medical; Visit Provider Physician Assistant Medical
DX: Z12.31 Encounter for screening mammogram for malignant neoplasm of breast (principal); Z80.3 Family history of malignant neoplasm of breast
CPT/HCPCS: 77063; 77067

== ENCOUNTER → 2023-01-11 07:11 | Outpatient (CLI) | payer OTHER, SELFPAY ==
[2020-06-16 13:36] VITALS: BMI 26.9
--- NOTE | 2023-01-11 | DI.MG.S_ITS ---
BILATERAL DIGITAL SCREENING MAMMOGRAM 3D/2D WITH CAD: 01/11/2023 CLINICAL: Routine screening. Family history of breast cancer. Comparison is made to exams dated: 12/23/2021 mammogram, 12/21/2020 mammogram, 12/20/2019 mammogram, and 12/17/2018 mammogram - [facility]. Both breasts are extremely dense, which lowers the sensitivity of mammography (category d />75% glandular tissue). Current study was also evaluated with a Computer Aided Detection (CAD) system. There are benign diffuse calcifications in both breasts. No significant masses, calcifications, or other findings are seen in either breast. There has been no significant interval change. IMPRESSION: BENIGN There is no mammographic evidence of malignancy. A 1 year screening mammogram is recommended. Based on the Tyrer Cuzick model (a risk assessment model) the patient's lifetime risk is 12.7% and her 10 year risk is 2.3%. According to the ACR, ACS, and NCCN guidelines, an annual breast MRI exam along with mammogram is recommended if the patient's lifetime risk is 20% or greater. This exam was interpreted at Station ID: [id number]. NOTE: For mammograms, a report in lay terms will be sent to the patient. Approximately 15% of breast malignancies will not be visualized mammographically. In the management of a palpable breast mass, a negative mammogram must not discourage biopsy of a clinically suspicious lesion. Electronically Signed By: David barrera/hedy:01/11/2023 12:19:51 letter sent: Normal Exam ACR BI-RADS Category 2: Benign Finding(s) 3342F
== END ==
PROVIDERS: PCP Physician Assistant Medical; Referring Provider Physician Assistant Medical; Visit Provider Physician Assistant Medical
DX: Z12.31 Encounter for screening mammogram for malignant neoplasm of breast (principal); Z80.3 Family history of malignant neoplasm of breast
CPT/HCPCS: 77063; 77067

== ENCOUNTER 2023-12-11 08:30 | Emergency (ER) | payer OTHER, SELFPAY ==
[2020-06-16 13:36] VITALS: BMI 26.9
[2023-12-11 08:43] VITALS: O2SAT 97
[2023-12-11 08:44] VITALS: BP 161/88; PULSE 65; RESP 18; TEMP 37.1; O2SAT 97; BMI 25.7
--- NOTE | 2023-12-11 08:52 | ED.ALLEREA ---
HPI - Allergic Reaction General Chief complaint: Allergic Reaction Stated complaint: allergic reaction to medication Time Seen by Provider: 12/11/23 08:52 Source: patient Mode of arrival: Ambulatory History of Present Illness HPI narrative: Patient is a 48-year-old female without any significant past medical history presenting for allergic reaction. States that she was taking 10 days of Augmentin, last dose was on Monday. She states on Monday she noticed an urticarial rash diffusely. Denies any difficulty breathing swallowing talking. States that she does have known allergy to Bactrim but no known allergies to penicillins. Denies any recent known exposures. At time of evaluation patient just stating diffuse urticarial rash speaking in full sentences protecting airway no voice change no stridor. States that she went to walk-in clinic yesterday was told to take Benadryl but this has not helped therefore decided come into the ED for further evaluation treatment. Related Data Home Medications Medication Instructions Recorded Confirmed folic acid 1 mg tablet 5 mg PO DAILY ##0 06/13/11 11/04/21 multivitamin 1 tab PO DAILY ##0 10/06/11 11/04/21 aspirin 81 mg tablet,delayed 81 mg PO DAILY ##0 04/20/12 11/04/21 release labetalol 100 mg tablet 100 mg PO QAM ##0 04/20/12 11/04/21 labetalol 100 mg tablet 50 mg PO QPM 05/28/18 11/04/21 fluticasone propionate 50 1 spray intranasal DAILY 11/29/19 11/04/21 mcg/actuation nasal spray,suspension bupropion HCl 100 mg tablet 100 mg PO BID 04/28/20 11/04/21 trazodone 50 mg tablet 100 mg PO DAILY 11/04/21 11/04/21 Previous Rx's Medication Instructions Recorded epinephrine 0.3 mg/0.3 mL 0.3 ml IM Q5-15M PRN anaphylaxis 12/11/23 injection, auto-injector #2 ea famotidine 20 mg tablet (Pepcid) 20 mg PO DAILY 5 days #5 tabs 12/11/23 prednisone 20 mg tablet 40 mg (2 x 20 mg) PO DAILY 5 days 12/11/23 #10 tabs Allergies Allergy/AdvReac Type Severity Reaction Status Date / Time cefaclor [CEFACLOR] Allergy Severe swelling Verified 11/04/21 14:05 Sulfa (Sulfonamide Allergy Severe swelling, Verified 11/04/21 14:05 Antibiotics) itching [SULFA (SULFONAMIDE ANTIBIOTICS)] Iodine and Iodide Containing Allergy Mild rash Verified 11/04/21 14:05 Produc [IODINE AND IODIDE CONTAINING PRODUC] Review of Systems Review of Systems Narrative: General: Denies fever, chills, weight loss HEENT: Denies headache, eye drainage, eye irritation, head trauma, sore throat, voice change Cardiovascular: Denies any chest pain, palpitations, shortness of breath, tachycardia Respiratory: Denies any shortness of breath, cough, wheeze, stridor GI/: Denies any abdominal pain, nausea, vomiting, diarrhea, bright red blood per rectum, melanotic stools, urinary frequency, urinary retention, dysuria, hematuria MSK: Denies any joint pain, muscle pains, swelling Skin: Urticarial rash Neuro: Denies any headache, lightheadedness, dizziness, fainting, weakness Psych: Denies SI/HI Patient History Medical History Abnormal uterine bleeding Chicken pox Factor V Leiden (2002) Hayfever Infertility (2002) Irregular periods/menstrual cycles (1995) Methylenetetrahydrofolate reductase (MTHFR) gene mutation (2002) Recurrent loss Right thyroid nodule (~02/2018) Surgical History Anesthesia History of mandibular surgery (11/2010) Status post dilation and curettage (09/2002) Status post dilation and curettage (04/2003) Status post dilation and curettage (05/2009) Status post hernia repair (12/1979) Status post tubal ligation (07/2014) Family History Father Age: 73 Hypertension Grandfather Cancer Heart disease Hypertension High cholesterol Stroke Lung cancer Grandmother Cancer Heart disease Breast cancer Mother Age: 71 Hypertension High cholesterol Grandmother Cancer Diabetes mellitus Breast cancer Heart problem Brother No problems noted. Grandfather Muscle disease Social History marital status: household members: spouse Smoking Status: Never smoker alcohol intake: current Smoking Status: Never smoker alcohol intake frequency: holidays/special occasions only Substance Use Type: does not use Exam Narrative Exam Narrative: General: Cooperative, comfortable, well-developed, not in acute distress HEENT: Normocephalic, atraumatic, PERRLA, normal sclera, eyelids normal, posterior oropharynx is clear without any signs of obstruction uvula midline speaking full sentences protecting airway no voice changes no stridor no trismus Neck: Active full range of motion, atraumatic Chest: Normal to inspection, negative crepitus, no overlying erythema ecchymosis Respiratory: Normal respiratory effort, not in acute respiratory distress, clear to auscultation bilaterally negative cough, wheeze, tachypnea, rhonchi, rales Cardiology: Regular rate rhythm negative gallop, murmur, rubs GI/: Normal to inspection, soft, nonrigid, no tenderness to palpation, exam deferred MSK: Full range of active range of motion of all 4 extremities, atraumatic Skin: Diffuse urticarial blanchable rash to body but not affecting mucosal membranes not affecting palms of hands or soles of feet. Neuro: Alert awake oriented x3, moves all 4 extremities spontaneously, cranial nerves intact, able to answer all questions appropriately follows commands appropriately Psych: Cooperative, negative suicidal or homicidal ideations Initial Vital Signs Initial Vital Signs: Vital Signs Temperature 98.8 F 12/11/23 08:44 Pulse Rate 65 12/11/23 08:44 Respiratory Rate 18 12/11/23 08:44 Blood Pressure 161/88 H 12/11/23 08:44 Pulse Oximetry 97 12/11/23 08:44 Oxygen Delivery Method Room Air 12/11/23 08:44 Course Orders Ordered: ED Orders 12/11/23 09:09 BMP [Basic Metabolic Panel] Stat CBC No Diff [Complete Blood Count NO DIFF] Stat Vital Signs Vital signs: Vital Signs - 8 hr 12/11/23 08:44 Temperature 98.8 F Pulse Rate 65 Respiratory Rate 18 Blood Pressure 161/88 H Pulse Oximetry 97 Oxygen Delivery Method Room Air MDM - Allergic Reaction Differential Diagnosis Differential diagnosis: Likely anaphylaxis, allergic reaction and urticaria MDM Narrative Medical decision making narrative: Patient is a 49-year-old female presenting for her to kill a rash, has a history of allergy to Bactrim, states that she did not have any known allergies to penicillins but completed a 10 day course of Augmentin for sinusitis. States that this dose of medication was completed on Monday. States that on Monday she noticed the urticarial rash. Denies any difficulty swallowing breathing. Not meeting anaphylaxis criteria. Did see urgent Care previously was told to try Benadryl but due to persistent symptoms decided come into the ED for further evaluation treatment. Patient was given Solu-Medrol Pepcid as well as Benadryl and a fluid bolus here in the emergency department. She did not have any difficulty breathing posterior oropharynx was clear with no signs of uvular deviation. After patient was watched and evaluated here in the emergency department symptoms improved and will be sent home with steroids and EpiPen. Instructed to follow up with monogram machine operator and PCP patient verbalized understanding of this and agrees to being discharged home with outpatient follow up Discharge Plan Departure Patient Disposition: Home Clinical Impression: Allergic reaction Activity Restrictions/Additional Instructions: Please read the discharge instructions sheet carefully and bring all papers to all doctor follow-up visits, as it may contain information that your doctor may want to see. Disease processes change and evolve, if your symptoms worsen or if you develop any new symptoms that are concerning to you please return for evaluation. Your evaluation today does not show any evidence of any life-threatening/serious illnesses requiring admission to the hospital or surgery. Please follow-up with your doctor for re-evaluation in approximately 1 day. Seek immediate medical attention for any worrisome symptoms. Prescriptions: New prednisone 20 mg tablet 40 mg PO DAILY 5 Days Qty: 10 0RF epinephrine 0.3 mg/0.3 mL auto-injector 0.3 ml IM Q5-15M PRN (Reason: anaphylaxis) Qty: 2 2RF Rx Instructions: do not exceed 3 doses per episode famotidine [Pepcid] 20 mg tablet 20 mg PO DAILY 5 Days Qty: 5 0RF No Action folic acid 1 mg Tablet 5 mg PO DAILY Qty: 0 multivitamin Tablet 1 tab PO DAILY Qty: 0 aspirin 81 mg Tablet,Delayed Release (Dr/Ec) 81 mg PO DAILY Qty: 0 labetalol 100 mg Tablet 100 mg PO QAM Qty: 0 bupropion HCl 100 mg tablet 100 mg PO BID fluticasone propionate 50 mcg/actuation spray,suspension 1 spray NASAL DAILY Rx Instructions: administer into each nostril trazodone 50 mg tablet 100 mg PO DAILY labetalol 100 mg Tablet 50 mg PO QPM Referrals: Andriy Willams PA-C [Primary Care Provider] - Stand Alone Forms: Patient Portal/API
[2023-12-11] MEDS: FAMOTIDINE 20 MG/2 ML VIAL IV (09:33)
[2023-12-11] MEDS: SODIUM CHLORIDE 0.9% 1,000 ML 500 ML IV (09:33)
[2023-12-11] MEDS: methylPREDNISolone 125 MG/2 ML VIAL IV (09:33)
[2023-12-11] MEDS: diphenhydrAMINE 50 MG/ML VIAL 25 MG IV (09:33)
[2023-12-11 09:37] VITALS: PULSE 57
[2023-12-11 09:39] LABS: Hematocrit 35.4 % (36-46); Hemoglobin 11.9 g/dL (12.0-16.0); Mean Corpuscular HGB Conc 33.7 % (30-36); Mean Corpuscular Hemoglobin 30.7 PG (26-34); Mean Corpuscular Volume 91.2 fL (80-100); Platelet Count 281 X10^3/uL (150-400); Red Blood Cell Count 3.88 X10^6/uL (4.0-5.2); Red Cell Distribution Width 12.9 % (11.6-14.8)
[2023-12-11 09:55] LABS: BUN Creatinine Ratio 20.5 (6-22); Blood Urea Nitrogen 15 mg/dL (7-17); Calcium 9.1 mg/dL (8.4-10.2); Carbon Dioxide 26 mmol/L (22-32); Chloride 102 mmol/L (98-107); Estimated Glomerular Filt Rate > 60 mL/min (>60); Glucose 96 mg/dL (70-100); Potassium 4.5 mmol/L (3.4-5.1); Sodium 137 mmol/L (137-145)
[2023-12-11 09:56] LABS: HEMOLYSIS 156 (0-50)
[2023-12-11 10:00] VITALS: BP 165/85; PULSE 62; RESP 19; O2SAT 99
[2023-12-11 10:30] VITALS: BP 153/76; PULSE 62; RESP 18; O2SAT 98
== END 2023-12-11 11:02 | disposition home or self-care (01) ==
PROVIDERS: Emergency Provider Student in an Organized Health Care Education/Training Program; PCP Physician Assistant Medical
DX: L50.9 Urticaria, unspecified (principal); T78.40XA Allergy, unspecified, initial encounter; R79.89 Other specified abnormal findings of blood chemistry
CPT/HCPCS: 36415; 80048; 85027; 96361; 96374; 96375; 99284; J1200; J2919